=== PATIENT | male | born 1960 | race Caucasian/White ===

== ENCOUNTER 2019-05-26 12:21 | Inpatient (IN) | payer BC ==
--- NOTE | 2019-05-26 12:49 | ER Document Report ---
ED Medical Screen (RME) - General Chief Complaint: Headache Stated Complaint: HEADACHE,DIZZINESS,BLURRED VISION Time Seen by Provider: 05/26/19 12:46 Primary Care Provider: JUANA ANDUJAR FNP-C [Primary Care Provider] - Follow up as needed Mode of Arrival: Wheelchair Information source: Patient, Relative Notes: 58-year-old male presents to the emergency department with complaints of headache dizziness blurred vision. Reports symptoms started last night. Reports he is having trouble with balance. He did go to an urgent care and they sent him to the emergency department for possible stroke. No history of stroke. Patient is alert and oriented no obvious neuro deficits noted. I have greeted and performed a rapid initial assessment of this patient. A comprehensive ED assessment and evaluation of the patient, analysis of test results and completion of the medical decision making process will be conducted by additional ED providers. Doctor's Discharge - Discharge Referrals: JUANA ANDUJAR FNP-C [Primary Care Provider] - Follow up as needed
--- NOTE | 2019-05-26 13:11 | ER Document Report ---
Doctor's Note Notes: 05/26/19 13:10 I was notified by Dr. Villela at [address] findings. They were concerning for evolving infarction versus mass. I did notify charge nurse. Patient was in sub-waiting, is now being brought back for further evaluation. 05/26/19 13:44
--- NOTE | 2019-05-26 13:11 | RADIOLOGY REPORT (SQ) ---
EXAM DESCRIPTION: CT HEAD WITHOUT COMPLETED DATE/TIME: 05/26/2019 12:59 pm REASON FOR STUDY: headache blurred vision, off balance COMPARISON: None. TECHNIQUE: Axial images acquired through the brain without intravenous contrast. Images reviewed wi th bone, brain and subdural windows. Additional sagittal and coronal reconstructions were generated. Images stored on PACS. All CT scanners at this facility use dose modulation, iterative reconstruction, and/or weight based d osing when appropriate to reduce radiation dose to as low as reasonably achievable (ALARA). [facility]: Dose Right [facility]: CareDose [facility]: Dose Right [facility]: Teradose 4D [facility]: Rounds RADIATION DOSE: CT Rad equipment meets quality standard of care and radiation dose reduction techniq ues were employed. CTDIvol: 53.2 mGy. DLP: 1070 mGy-cm. mGy. LIMITATIONS: None. FINDINGS: VENTRICLES: Normal size and contour. CEREBRUM: Focal decreased attenuation in the right frontal lobe extending from the anterior horn of t he right lateral ventricle to the cortex. This could represent focal evolving infarct. Underlying m ass cannot be excluded. Correlation with MRI is recommended. No hemorrhage. Mild mass effect. CEREBELLUM: No masses. No hemorrhage. No alteration of density. No evidence for acute infarction. EXTRAAXIAL SPACES: No fluid collections. No masses. ORBITS AND GLOBE: No intra- or extraconal masses. Normal contour of globe without masses. CALVARIUM: No fracture. PARANASAL SINUSES: No fluid or mucosal thickening. SOFT TISSUES: No mass or hematoma. OTHER: No other significant finding. IMPRESSION: Focal area of edema in the right frontal lobe this measures 3.5 x 2.3 cm. Differential includes evolving infarct versus mass. Further evaluation with MRI is recommended. EVIDENCE OF ACUTE STROKE: YES. COMMENT: Pertinent findings on the imaging study reported as a CRITICAL RESULT to Dr. Stoner at13:0 5 on 05/26/2019. Category of Critical Result: Right frontal lobe lesion either acute infarct or mass. Quality ID # 436: Final reports with documentation of one or more dose reduction techniques (e.g., Au tomated exposure control, adjustment of the mA and/or kV according to patient size, use of iterative reconstruction technique) TECHNICAL DOCUMENTATION: JOB ID: [id number] 2010 [employer]- All Rights Reserved Reading location - IP/workstation name: [email or web address]
--- NOTE | 2019-05-26 13:12 | RADIOLOGY REPORT (SQ) ---
EXAM DESCRIPTION: CHEST SINGLE VIEW COMPLETED DATE/TIME: 05/26/2019 1:02 pm REASON FOR STUDY: headache blurred vision, off balance COMPARISON: None. EXAM PARAMETERS: NUMBER OF VIEWS: One view. TECHNIQUE: Single frontal radiographic view of the chest acquired. RADIATION DOSE: NA LIMITATIONS: None. FINDINGS: LUNGS AND PLEURA: No opacities, masses or pneumothorax. No pleural effusion. MEDIASTINUM AND HILAR STRUCTURES: No masses. Contour normal. HEART AND VASCULAR STRUCTURES: Heart normal in size. Normal vasculature. BONES: No acute findings. HARDWARE: None in the chest. OTHER: No other significant finding. IMPRESSION: NO ACUTE RADIOGRAPHIC FINDING IN THE CHEST. TECHNICAL DOCUMENTATION: JOB ID: [id number] 2010 [employer]- All Rights Reserved Reading location - IP/workstation name: [email or web address]
[2019-05-26 13:14] LABS: ABSOLUTE BASOPHILS # (AUTO) 0.1 10^3/uL (0.0-0.2); ABSOLUTE EOSINOPHILS # (AUTO) 0.2 10^3/uL (0.0-0.6); ABSOLUTE LYMPHOCYTES (AUTO) 0.8 10^3/uL (0.5-4.7); ABSOLUTE MONOCYTES (AUTO) 0.6 10^3/uL (0.1-1.4); ABSOLUTE NEUT (AUTO) 3.2 10^3/uL (1.7-8.2); BASOPHILS % (AUTO) 1.2 % (0-2); EOSINOPHILS % (AUTO) 3.3 % (0-6); HEMATOCRIT 47.4 % (37.9-51.0); HEMOGLOBIN 16.5 g/dL (13.5-17.0); MEAN CORPUSCULAR HEMOGLOBIN 33.8 pg (27.0-33.4); MEAN CORPUSCULAR HGB CONC 34.8 g/dL (32.0-36.0); MEAN CORPUSCULAR VOLUME 97 fl (80-97); MONOCYTES % (AUTO) 12.9 % (3-13); PLATELET COUNT 263 10^3/uL (150-450); RED BLOOD COUNT 4.88 10^6/uL (4.35-5.55); RED CELL DISTRIBUTION WIDTH 14.8 % (11.5-14.0); SEGMENTED NEUTROPHILS % (AUTO) 65.6 % (42-78); TOTAL CELLS COUNTED % (AUTO) 100 %; WHITE BLOOD COUNT 4.8 10^3/uL (4.0-10.5)
[2019-05-26 13:17] LABS: INTERNATIONAL RATION (INR) 0.92
[2019-05-26 13:18] LABS: PARTIAL THROMBOPLASTIN TIME 29.1 SEC (23.5-35.8)
[2019-05-26 13:23] LABS: PROTHROMBIN TIME 12.4 SEC (11.4-15.4)
[2019-05-26 13:37] LABS: ALBUMIN 4.4 g/dL (3.5-5.0); ALKALINE PHOSPHATASE 67 U/L (38-126); ANION GAP 8 (5-19); ASPARTATE AMINO TRANSFERASE 30 U/L (17-59); BILIRUBIN,DIRECT 0.2 mg/dL (0.0-0.4); BILIRUBIN,TOTAL 0.8 mg/dL (0.2-1.3); BLOOD UREA NITROGEN 12 mg/dL (7-20); CALCIUM 9.6 mg/dL (8.4-10.2); CARBON DIOXIDE 26 mmol/L (22-30); CHLORIDE 103 mmol/L (98-107); CREATINE KINASE 313 U/L (55-170); GLUCOSE 110 mg/dL (75-110); POTASSIUM 4.3 mmol/L (3.6-5.0); TOTAL PROTEIN 7.7 g/dL (6.3-8.2)
[2019-05-26 13:49] LABS: CREATINE KINASE MB 2.62 ng/mL (<4.55)
--- NOTE | 2019-05-26 13:50 | ER Document Report ---
ED General - General Chief Complaint: Headache Stated Complaint: HEADACHE,DIZZINESS,BLURRED VISION Time Seen by Provider: 05/26/19 12:46 Primary Care Provider: JUANA ANDUJAR FNP-C [Primary Care Provider] - Follow up as needed Mode of Arrival: Wheelchair - HPI Notes: Patient is a 58-year-old male who presents to the emergency department for evaluation of left-sided headache, visual changes, feeling off balance, and nausea. He states that he was sitting at his desk at approximately 00 30 hours today. He had a sudden onset of a very severe left-sided headache. He had a ssociated blurred vision and nausea. He felt very off balance. He is having enough difficulty walking that he crawled to bed. He was able to go to sleep. He states he woke this morning, his pain was improved somewhat, but he still has pain in his left head and in the left side of his neck. He states his visual changes have improved mildly. He has some nausea but has not had any emesis. He states his balance is improved somewhat as well. - Related Data Home Medications: Albuterol as needed Past Medical History - General Information source: Patient, Relative - Social History Smoking Status: Current Every Day Smoker Family History: CAD Pulmonary Medical History: Reports: Hx COPD Endocrine Medical History: Reports: Hx Diabetes Mellitus Type 2 - Was on metformin, then taken off of it Review of Systems - Review of Systems Constitutional: See HPI Neurological/Psychological: See HPI -: Yes All other systems reviewed and negative Physical Exam - Vital signs Vitals: Temp Pulse Resp BP Pulse Ox 97.9 F 89 22 H 154/99 H 94 05/26/19 12:47 05/26/19 12:47 05/26/19 12:47 05/26/19 12:47 05/26/19 12:47 - Notes Notes: Vital signs reviewed, please refer to chart. Head is normocephalic, atraumatic. Pupils equal round, reactive to light. Neck is supple without meningismus. Heart is regular rate and rhythm. Lungs are clear to auscultation bilaterally. Abdomen is soft, nontender, normoactive bowel sounds throughout. Extremities without cyanosis, clubbing. Posterior calves are nontender. Peripheral pulses are equal. Skin is warm and dry. Patient is awake, alert, oriented x3. Cranial nerves II - XII are grossly intact without focal neurological deficits. Strength is plus 5 out of 5 bilateral upper and lower extremities. Sensation is intact. Reflexes symmetrical. Intact jwrg-di-wxhy and rapid alternating mov ements. He did have some mild dysmetria on fhyarp-jvqz-qdzixg. Course - Re-evaluation Re-evalutation: 05/26/19 13:49 Patient presents emergency department for evaluation. He had onset of symptoms at 00 30 hours. He presented to the emergency department well outside of the TPA window. His CT scan was not conclusive for an acute ischemic infarction, it certainly could be a mass. This is another reason that the patient would not meet TPA criteria. At this point he has minimal deficits. I explained the CT findings to the patient and MRI was ordered. He is stable at this time, we will continue to monitor. 05/26/19 15:39 MRI revealed old infarction in the frontal lobe, new cerebellar infarct. Patient was given aspirin. He was given morphine and Zofran for his pain. His neurological exam remained stable. I am awaiting phone call from medicine regarding admission. 05/26/19 15:[address] Manzano, he will admit the patient for further care. - Vital Signs Vital signs: Temp Pulse Resp BP Pulse Ox 97.9 F 83 19 158/120 H 94 05/26/19 12:47 05/26/19 12:47 05/26/19 12:47 05/26/19 12:47 05/26/19 12:47 - Laboratory Result Diagrams: 05/26/19 13:00 05/26/19 13:00 Laboratory results interpreted by me: 05/26/19 05/26/19 05/26/19 13:00 13:00 13:08 MCH 33.8 H RDW 14.8 H POC Glucose 116 H Creatine Kinase 313 H - Diagnostic Test Radiology reviewed: Reports reviewed Radiology results interpreted by me: 05/26/19 15:45 Chest X-Ray 05/26/19 12:47 IMPRESSION: NO ACUTE RADIOGRAPHIC FINDING IN THE CHEST. Head CT 05/26/19 12:47 IMPRESSION: Focal area of edema in the right frontal lobe this measures 3.5 x 2.3 cm. Differential includes evolving infarct versus mass. Further evaluation with MRI is recommended. EVIDENCE OF ACUTE STROKE: YES. Head MRI 05/26/19 13:43 IMPRESSION: 1. The region of interest in the right frontal lobe looks like chronic old infarct. Superimposed on chronic small vessel disease. Mild atrophy. 2. Acute left azeem cerebellar infarct. EVIDENCE OF ACUTE STROKE: YES. LEFT VERTEBROBASILAR. - EKG Interpretation by Me Additional EKG results interpreted by me: 05/26/19 13:50 Sinus mechanism with a rate of 85 bpm. Normal axis intervals. No acute ST changes concerning for ischemia or infarction. No old studies immediately available for comparison. Discharge - Discharge Clinical Impression: Cerebellar CVA Condition: Stable Disposition: ADMITTED INPATIENT Admitting Provider: Jose Juan (Hospitalist) Unit Admitted: IMCU Referrals: JUANA ANDUJAR, EMERGENCY VEHICLE OPERATIONS INSTRUCTOR-C [Primary Care Provider] - Follow up as needed
[2019-05-26 13:54] LABS: TROPONIN I < 0.012 ng/mL
--- NOTE | 2019-05-26 15:01 | RADIOLOGY REPORT (SQ) ---
EXAM DESCRIPTION: MRI HEAD COMBO COMPLETED DATE/TIME: 05/26/2019 2:42 pm REASON FOR STUDY: eval for evolving CVA vs mass, frontal lobe COMPARISON: CT 05/26/2019. TECHNIQUE: Multiplanar imaging includes noncontrasted T1, T2, FLAIR, diffusion with ADC map and post gadolinium contrast T1 sequences. Images stored on PACS. CONTRAST TYPE AND DOSE: 20 mL Dotarem. RENAL FUNCTION: Not indicated. ACR Type II contrast agent associated with few, if any, unconfounded cases of NSF LIMITATIONS: None. FINDINGS: ANATOMY: No anomalies. Normal vascular flow voids. Pituitary fossa normal. CSF SPACES: Normal in size and contour. No hemorrhage. CEREBRUM: Corresponding to the recently detected abnormal signal in the right frontal lobe is encepha lomalacia with surrounding hyperintense FLAIR presumed gliosis. There is mild additional deep white matter small vessel change present. There is no enhancement in the right frontal lobe or elsewhere. No hemorrhage or underlying mass or shift. POSTERIOR FOSSA: No signal alteration. No hemorrhage. No edema, masses, or mass effect. Internal barbara tory canals, cerebellopontine angles, mastoids normal. No enhancing lesions. No abnormal enhancement post contrast. DIFFUSION IMAGING: Spotty restricted diffusion in the left aspect of the cerebellum. This is consist ent with recent cerebellar infarct. ORBITS: No masses. Globes normal. PARANASAL SINUSES: No fluid. Chronic mucosal thickening in the maxillary sinuses. OTHER: No other significant finding. IMPRESSION: 1. The region of interest in the right frontal lobe looks like chronic old infarct. Superimposed on chronic small vessel disease. Mild atrophy. 2. Acute left azeem cerebellar infarct. EVIDENCE OF ACUTE STROKE: YES. LEFT VERTEBROBASILAR. TECHNICAL DOCUMENTATION: JOB ID: [id number] [employer]- All Rights Reserved Reading location - IP/workstation name: [email or web address]
[2019-05-26] MEDS ORDERED: MORPHINE SULFATE 10 MG/ML INJ IV ONE (15:10)
[2019-05-26] MEDS ORDERED: ONDANSETRON HCL INJ/PF 4 MG/2 ML SDV IV ONE (15:10)
[2019-05-26] MEDS ORDERED: ASPIRIN 325 MG TABLET PO ONE (15:10)
[2019-05-26] MEDS ORDERED: APIXABAN 5 MG TABLET PO ONE (15:11)
[2019-05-26] MEDS ORDERED: MAGNESIUM HYDROXIDE SUSP 30 ML UDCUP PO PRN (17:27)
[2019-05-26] MEDS ORDERED: DOCUSATE SODIUM 100 MG CAPSULE PO PRN (17:27)
[2019-05-26] MEDS ORDERED: ONDANSETRON HCL INJ/PF 4 MG/2 ML SDV IV PRN (17:27)
[2019-05-26] MEDS ORDERED: LABETALOL HCL INJ 20 MG/4 ML DISP.SYRIN IV PRN (17:31)
--- NOTE | 2019-05-26 17:31 | EKG REPORT ---
SEVERITY:- BORDERLINE ECG - SINUS RHYTHM CONSIDER INFERIOR INFARCT : Confirmed by: Shira Seymour 26-May-2019 17:30:41
[2019-05-26] MEDS ORDERED: IPRATROPIUM/ALBUTEROL 0.5-2.5 MG/3 ML AMPUL NEB PRN (17:32)
--- NOTE | 2019-05-26 17:50 | PDOC H&P ---
History of Present Illness Admission Date/PCP: 05/26/19 16:04 JUANA ANDUJAR, MELE-C Patient complains of: Headache, dizziness, blurred vision History of Present Illness: BRYAN MATOS is a 58 year old male with a history of COPD not on home oxygen, hypertension, chronic tobacco abuse, obesity, who presents to the hospital complaining of sudden onset dizziness worsening vision started at 12:30 AM around midnight. Patient noted some imbalance and subsequently went to sleep hoping to sleep it off. When he woke up this morning he was still having imbalance and disequilibrium as well as mild blurred vision when he moved around and decided to see his primary care provider who referred him to the hospital for evaluation. In the ER patient was noted to have a stroke. Unfortunately was out of the TPA window so could not receive TPA. Currently still states disequilibrium but notes some improvement in the symptoms. Denies any weakness in his arms legs. Still admits to some blurriness in his vision whenever he moves around but is good when he is steady. Otherwise no other neurological deficits. Denies any shortness of breath at this time more than his baseline. Denies any history of atrial fibrillation or prior strokes. Past Medical History Cardiac Medical History: Reports: Hypertension Denies: Atrial Fibrillation, Congestive Heart Failure, Myocardial Infarction, Hyperlipidema Pulmonary Medical History: Reports: Bronchitis, Chronic Obstructive Pulmonary Disease (COPD) Denies: Asthma, Pneumonia, Tuberculosis Neurological Medical History: Reports: Migraine Denies: Seizures Endocrine Medical History: Reports: Other - Prediabetes Denies: Diabetes Mellitus Type 1 Renal/ Medical History: Denies: End Stage Renal Disease GI Medical History: Denies: Gastroesophageal Reflux Disease, Hiatal Hernia Musculoskeltal Medical History: Denies: Arthritis Psychiatric Medical History: Denies: Attention Deficit Hyperactivity Disorder, Bipolar Disorder, Depression Hematology: Denies: Anemia, Sickle Cell Disease Past Surgical History Past Surgical History: Reports: Orthopedic Surgery - Right wrist repair in approx year 1979, Tonsillectomy Denies: Appendectomy, Cardiac Catheterization, Cholecystectomy, Vascular Surgery Social History Smoking Status: Current Every Day Smoker Electronic Cigarette use?: No Frequency of Alcohol Use: Rare Hx Recreational Drug Use: No - Advance Directive Resuscitation Status: Full Code Family History Family History: CAD, DM Parental Family History Reviewed: Yes Children Family History Reviewed: NA Sibling(s) Family History Reviewed.: NA Medication/Allergy Home Medications: Albuterol Sulfate [Proair Hfa Inhalation Aerosol 8.5 gm Mdi] 200 puff IH BIDP PRN 05/26/19 Aspirin/Acetaminophen/Caffeine [Excedrin Extra Strength Caplet] 1 each PO DAILYP PRN 05/26/19 Fluticasone/Salmeterol [Advair 250-50 Diskus 14 Dose/Diskus] 1 inh IH Q12H 05/26/19 Ibuprofen [Motrin 800 mg Tablet] 800 mg PO Q8H PRN 05/26/19 Allergies/Adverse Reactions: No Known Allergies Allergy (Verified 05/26/19 16:57) Review of Systems Constitutional: PRESENT: headache(s). ABSENT: chills, fever(s) Eyes: PRESENT: visual disturbances Ears: ABSENT: hearing changes Nose, Mouth, and Throat: PRESENT: headache(s) Cardiovascular: ABSENT: chest pain Respiratory: ABSENT: cough, dyspnea Gastrointestinal: PRESENT: abdominal pain, nausea. ABSENT: melena, vomiting Genitourinary: ABSENT: dysuria Integumentary: ABSENT: diaphoresis Neurological: PRESENT: dizziness. ABSENT: confusion, syncope, vertigo Psychiatric: ABSENT: anxiety Endocrine: ABSENT: heat intolerance, polyuria Allergic/Immunologic: ABSENT: seasonal rhinorrhea Physical Exam Vital Signs: Temp Pulse Resp BP Pulse Ox 97.9 F 88 17 159/100 H 87 L 05/26/19 12:47 05/26/19 15:00 05/26/19 16:00 05/26/19 16:00 05/26/19 16:00 Intake & Output 05/25/19 05/26/19 05/27/19 06:59 06:59 06:59 Weight 115 kg General appearance: PRESENT: no acute distress, cooperative, obese. ABSENT: hard of hearing Head exam: PRESENT: normocephalic Eye exam: PRESENT: EOMI, PERRLA. ABSENT: nystagmus, scleral icterus Mouth exam: PRESENT: neck supple Neck exam: ABSENT: JVD Respiratory exam: PRESENT: symmetrical, unlabored, wheezes. ABSENT: crackles, rhonchi, tachypnea Cardiovascular exam: PRESENT: RRR, +S1, +S2. ABSENT: tachycardia GI/Abdominal exam: PRESENT: soft. ABSENT: rebound, rigid, tenderness Extremities exam: PRESENT: +1 edema Neurological exam: PRESENT: alert, awake, oriented to person, oriented to place, oriented to time, oriented to situation, abnormal gait, CN II-XII grossly intact. ABSENT: ataxia, motor sensory deficit, aphasic Psychiatric exam: ABSENT: agitated, anxious Focused psych exam: ABSENT: pressured speech Skin exam: ABSENT: jaundice Results Laboratory Results: 05/26/19 13:00 05/26/19 13:00 05/26/19 05/26/19 13:00 13:00 WBC 4.8 RBC 4.88 Hgb 16.5 Hct 47.4 MCV 97 MCH 33.8 H MCHC 34.8 RDW 14.8 H Plt Count 263 Seg Neutrophils % 65.6 Sodium 137.0 Potassium 4.3 Chloride 103 Carbon Dioxide 26 Anion Gap 8 BUN 12 Creatinine 0.91 Est GFR ( Amer) > 60 Glucose 110 Calcium 9.6 Total Bilirubin 0.8 AST 30 Alkaline Phosphatase 67 Total Protein 7.7 Albumin 4.4 05/26/19 05/26/19 13:00 13:00 Creatine Kinase 313 H CK-MB (CK-2) 2.62 Troponin I < 0.012 Impressions: Chest X-Ray 05/26/19 12:47 IMPRESSION: NO ACUTE RADIOGRAPHIC FINDING IN THE CHEST. Head CT 05/26/19 12:47 IMPRESSION: Focal area of edema in the right frontal lobe this measures 3.5 x 2.3 cm. Differential includes evolving infarct versus mass. Further evaluation with MRI is recommended. EVIDENCE OF ACUTE STROKE: YES. Head MRI 05/26/19 13:43 IMPRESSION: 1. The region of interest in the right frontal lobe looks like chronic old infarct. Superimposed on chronic small vessel disease. Mild atrophy. 2. Acute left azeem cerebellar infarct. EVIDENCE OF ACUTE STROKE: YES. LEFT VERTEBROBASILAR. Assessment and Plan - Diagnosis (1) Acute ischemic stroke Is this a current diagnosis for this admission?: Yes Plan: Acute ischemic stroke involving left cerebellum noted on MRI as well as old stroke in the right frontal. Unfortunately patient was out of the TPA window and as such could not receive TPA CVA care set deployed Check CTA head and neck, echocardiogram, hemoglobin A1c, lipid panel. Permissive hypertension and bedrest for 24 hours PT to help with balance training/OT/social work (2) COPD (chronic obstructive pulmonary disease) Qualifiers: COPD type: unspecified COPD Qualified Code(s): J44.9 - Chronic obstructive pulmonary disease, unspecified Is this a current diagnosis for this admission?: Yes Plan: May be having mild exacerbation with wheezing. Will put on nebulizer dqujlp-yxb-ydsks as well as LABA/ICS. No steroids for now. (3) Obesity Qualifiers: Obesity type: unspecified obesity type Obesity classification: adult class 2 (BMI 35 - 39.9) Serious obesity comorbidity presence: unspecified whether serious comorbidity present Body mass index: BMI 36.0-36.9 Qualified Code(s): E66.9 - Obesity, unspecified; Z68.36 - Body mass index (BMI) 36.0-36.9, adult Is this a current diagnosis for this admission?: Yes Plan: Check hemoglobin A1c and lipid panel (4) Tobacco abuse Is this a current diagnosis for this admission?: Yes Plan: Counseled on smoking cessation. (5) Hypertension Qualifiers: Hypertension type: essential hypertension Qualified Code(s): I10 - Essential (primary) hypertension Is this a current diagnosis for this admission?: Yes Plan: Permissive hypertension for 24hrs up to 220/120 - Time Time Spent with patient: 35 or more minutes
[2019-05-26] MEDS ORDERED: INFLUENZA QUAD (6MOS+) 2019-20 VAC 0.5 ML SYR IM ONE (17:54)
[2019-05-26] MEDS ORDERED: CLOPIDOGREL BISULFATE 75 MG TABLET PO ONE (18:00)
[2019-05-26] MEDS ORDERED: FLUTICASONE/VILANTEROL 100-25 MCG/DOSE IH ONE (18:30)
[2019-05-26] MEDS: HYDROCODONE/ACETAMINOPHEN 10-325 MG TABLET PO PRN (18:45)
[2019-05-26] MEDS: IPRATROPIUM/ALBUTEROL 0.5-2.5 MG/3 ML AMPUL NEB SCH (20:34)
[2019-05-26] MEDS ORDERED: ATORVASTATIN CALCIUM 80 MG TABLET PO SCH (22:00)
[2019-05-27] MEDS ORDERED: ACETAMINOPHEN 325 MG TABLET PO PRN (00:44)
[2019-05-27] MEDS: IPRATROPIUM/ALBUTEROL 0.5-2.5 MG/3 ML AMPUL NEB SCH ×3 (02:09→13:44)
[2019-05-27 06:35] LABS: PROTHROMBIN TIME 13.2 SEC (11.4-15.4)
[2019-05-27 06:36] LABS: PARTIAL THROMBOPLASTIN TIME 30.3 SEC (23.5-35.8)
[2019-05-27 06:45] LABS: ALBUMIN 3.7 g/dL (3.5-5.0); ALKALINE PHOSPHATASE 50 U/L (38-126); ANION GAP 7 (5-19); ASPARTATE AMINO TRANSFERASE 26 U/L (17-59); BILIRUBIN,DIRECT 0.2 mg/dL (0.0-0.4); BILIRUBIN,TOTAL 0.8 mg/dL (0.2-1.3); BLOOD UREA NITROGEN 11 mg/dL (7-20); CALCIUM 8.9 mg/dL (8.4-10.2); CARBON DIOXIDE 27 mmol/L (22-30); CHLORIDE 103 mmol/L (98-107); CHOLESTEROL 195.14 mg/dL (0-200); GLUCOSE 101 mg/dL (75-110); POTASSIUM 4.3 mmol/L (3.6-5.0); TOTAL PROTEIN 6.7 g/dL (6.3-8.2); TRIGLYCERIDES 167 mg/dL (<150)
[2019-05-27 06:56] LABS: DIRECT LDL 143 mg/dL (<100)
[2019-05-27 07:00] LABS: VLDL CHOLESTEROL 33.4 mg/dL (10-31)
[2019-05-27 07:35] LABS: ABSOLUTE EOSINOPHILS # (AUTO) 0.2 10^3/uL (0.0-0.6); ABSOLUTE LYMPHOCYTES (AUTO) 0.7 10^3/uL (0.5-4.7); ABSOLUTE MONOCYTES (AUTO) 0.6 10^3/uL (0.1-1.4); ABSOLUTE NEUT (AUTO) 3.2 10^3/uL (1.7-8.2); BASOPHILS % (AUTO) 0.8 % (0-2); EOSINOPHILS % (AUTO) 3.5 % (0-6); HEMATOCRIT 42.4 % (37.9-51.0); HEMOGLOBIN 14.6 g/dL (13.5-17.0); LYMPHOCYTES % (AUTO) 14.1 % (13-45); MEAN CORPUSCULAR HEMOGLOBIN 33.5 pg (27.0-33.4); MEAN CORPUSCULAR HGB CONC 34.3 g/dL (32.0-36.0); MEAN CORPUSCULAR VOLUME 98 fl (80-97); MONOCYTES % (AUTO) 12.5 % (3-13); PLATELET COUNT 222 10^3/uL (150-450); RED BLOOD COUNT 4.35 10^6/uL (4.35-5.55); SEGMENTED NEUTROPHILS % (AUTO) 69.1 % (42-78); TOTAL CELLS COUNTED % (AUTO) 100 %; WHITE BLOOD COUNT 4.7 10^3/uL (4.0-10.5)
[2019-05-27] MEDS: HYDROCODONE/ACETAMINOPHEN 10-325 MG TABLET PO PRN (08:25)
[2019-05-27] MEDS ORDERED: CLOPIDOGREL BISULFATE 75 MG TABLET PO SCH (10:00)
[2019-05-27] MEDS ORDERED: ASPIRIN 81 MG TABLET, CHEWABLE PO SCH (10:00)
[2019-05-27] MEDS ORDERED: FLUTICASONE/VILANTEROL 100-25 MCG/DOSE IH SCH (10:00)
[2019-05-27] MEDS ORDERED: CYCLOBENZAPRINE HCL 10 MG TABLET PO PRN (10:20)
--- NOTE | 2019-05-27 10:30 | RADIOLOGY REPORT (SQ) ---
EXAM DESCRIPTION: CTA HEAD COMPLETED DATE/TIME: 05/27/2019 7:57 am REASON FOR STUDY: CVA COMPARISON: None. TECHNIQUE: Axial images acquired through the brain with intravenous contrast. Images reviewed with bone, brain and subdural windows. Additional sagittal and coronal reconstructions were generated. Im ages stored on PACS. CT angio [place] was performed. Thin section postcontrast CT images were reviewed with maxim um intensity projected images of the [place] in multiple orientations. All CT scanners at this facility use dose modulation, iterative reconstruction, and/or weight based d osing when appropriate to reduce radiation dose to as low as reasonably achievable (ALARA). [facility]: Dose Right [facility]: CareDose [facility]: Dose Right [facility]: Teradose 4D [facility]: Induction Manager CONTRAST TYPE AND DOSE: See separate report of the same date. RENAL FUNCTION: See separate report. RADIATION DOSE: . LIMITATIONS: None. FINDINGS: VENTRICLES: Normal size and contour. CEREBRUM: No masses. No hemorrhage. No midline shift. No evidence for acute infarction. Old right frontal infarct. CEREBELLUM: No masses. No hemorrhage. No alteration of density. No evidence for acute infarction. No enhancing lesions. EXTRA-AXIAL SPACES: No fluid collections. No enhancing lesions. ORBITS AND GLOBE: No intra- or extraconal masses. Normal contour of globe without masses. CALVARIUM: No fracture. PARANASAL SINUSES: No fluid or mucosal thickening. SOFT TISSUES: No mass or hematoma. OTHER: No other significant finding. CTA COW: [place]: The anterior, middle, posterior cerebral arteries are all patent. No evidence of a neurysm or focal stenosis. POSTERIOR CIRCULATION: The distal vertebral arteries are patent as is the basilar artery. No aneurysm . OTHER: No other significant finding. IMPRESSION: Old right frontal lobe infarct. Normal [place]. EVIDENCE OF ACUTE STROKE: NO. TECHNICAL DOCUMENTATION: JOB ID: [id number] Quality ID # 436: Final reports with documentation of one or more dose reduction techniques (e.g., Au tomated exposure control, adjustment of the mA and/or kV according to patient size, use of iterative reconstruction technique) 2010 [employer]- All Rights Reserved Reading location - IP/workstation name: [email or web address]
--- NOTE | 2019-05-27 10:32 | RADIOLOGY REPORT (SQ) ---
EXAM DESCRIPTION: CTA NECK COMPLETED DATE/TIME: 05/27/2019 7:57 am REASON FOR STUDY: CVA COMPARISON: None. TECHNIQUE: Axial dynamic scanning technique with dynamic contrast enhancement through the extra-window and siding craftsman nial carotid and vertebral arteries. Multiplanar reconstruction. 3-D MIPS and Volume-rendered imag es acquired at the workstation and saved to PACS. Images are reviewed in soft tissue, bone, lung w indows. All CT scanners at this facility use dose modulation, iterative reconstruction, and/or weight based d osing when appropriate to reduce radiation dose to as low as reasonably achievable (ALARA). [facility]: Dose Right [facility]: CareDose [facility]: Dose Right [facility]: Teradose 4D [facility]: [place] CONTRAST TYPE AND DOSE: contrast/concentration: Isovue 350.00 mg/ml; Total Contrast Delivered: 160.0 ml; Total Saline Delivered: 110.0 ml RENAL FUNCTION: GFR > 60. LIMITATIONS: None. FINDINGS: AORTIC ARCH: Normal three-vessel origin. Bilateral subclavian arteries are patent. No d issection. RIGHT CAROTIDS: Patent common, internal and external carotid arteries without suggestion of significa nt stenosis or irregular plaque. No dissection. RIGHT VERTEBRAL: Patent. No dissection. LEFT CAROTIDS: Patent common, internal and external carotid arteries without suggestion of significan t stenosis or irregular plaque. No dissection. LEFT VERTEBRAL: Patent. No dissection. OTHER: No other significant finding. OTHER: 3-D reconstructions confirm findings. IMPRESSION: NORMAL CTA OF THE EXTRA-CRANIAL CAROTID AND VERTEBRAL ARTERIES. COMMENT: Quality ID #195: Measurements of distal internal carotid diameter were used as the denomina tor for stenosis measurement. TECHNICAL DOCUMENTATION: JOB ID: [id number] Quality ID # 436: Final reports with documentation of one or more dose reduction techniques (e.g., Au tomated exposure control, adjustment of the mA and/or kV according to patient size, use of iterative reconstruction technique) 2010 [employer]- All Rights Reserved Reading location - IP/workstation name: [email or web address]
[2019-05-27] MEDS ORDERED: LOSARTAN POTASSIUM 25 MG TABLET PO SCH (14:45)
[2019-05-27] MEDS ORDERED: NICOTINE 21 MG/24 HR PATCH.TD24 TD PRN (15:43)
[2019-05-27] MEDS ORDERED: BUPROPION HCL 75 MG TABLET PO SCH (15:45)
--- NOTE | 2019-05-27 15:53 | XCELERA REPORT ---
[address] [address] Transthoracic Echocardiogram Report Name: BRYAN MATOS Age: 58 yrs Gender: Male : 1960 Patient Status: Inpatient Patient Location: [address] [place], [place] [id number] Study Date: 05/27/2019 09:03 AM Height: 70 in Weight: 253 lb BSA: 2.3 m2 Procedure: A complete two-dimensional transthoracic echocardiogram was performed (2D, M-mode, spectral and color flow Doppler). The study was technically adequate with some images being suboptimal in quality. Reason For Study: CVA Ordering Physician: EVAN ALVA Performed By: Ele Parekh Interpretation Summary The left ventricular ejection fraction is normal. There is mild concentric left ventricular hypertrophy. Doppler measurements suggest pseudonormalized left ventricular relaxation, which is associated with grade II/IV or mild to moderate diastolic dysfunction The left ventricle is grossly normal size. Wall motion cannot be accurately commented on, but no definite regional wall motion abnormalities noted. Borderline right ventricular enlargement. The right ventricular systolic function is normal. The left atrium is mildly dilated. The right atrium is normal. There is a trace amount of mitral regurgitation There is no mitral valve stenosis. No aortic regurgitation is present. There is no aortic valve stenosis There is a trace or physiologic amount of tricuspid regurgitation Tricuspid regurgitation jet envelope not well defined to measure RV systolic pressure accurately. The aortic root is not well visualized but is probably normal size. The inferior vena cava appeared normal and decreased > 50% with respiration (RAP 5-10 mmHg) Minimal pericardial effusion. No definite cardiac source of CVA/TIA noted on this particular trans-thoracic study. Consider JONNY if clinically indicated. MMode/2D Measurements & Calculations RVDd: 2.3 cm LVIDd: 5.7 cm FS: 32.0 % Ao root diam: 2.7 cm IVSd: 1.1 cm LVIDs: 3.8 cm EDV(Teich): 156.9 ml Ao root area: 5.8 cm2 LVPWd: 0.96 cm ESV(Teich): 63.7 ml EF(Teich): 59.4 % Doppler Measurements & Calculations MV E max buster: MV dec slope: Ao V2 max: LV V1 max P.9 cm/sec 304.6 cm/sec2 192.0 cm/sec 6.3 mmHg MV A max buster: MV dec time: 0.21 sec Ao max PG: LV V1 max: 79.9 cm/sec 14.7 mmHg 125.7 cm/sec MV E/A: 0.80 PA V2 max: TR max buster: 83.0 cm/sec 143.3 cm/sec PA max P.8 mmHgTR max P.2 mmHg Left Ventricle The left ventricle is grossly normal size. There is mild concentric left ventricular hypertrophy. The left ventricular ejection fraction is normal. Doppler measurements suggest pseudonormalized left ventricular relaxation, which is associated with grade II/IV or mild to moderate diastolic dysfunction. Wall motion cannot be accurately commented on, but no definite regional wall motion abnormalities noted. Right Ventricle Borderline right ventricular enlargement. There is normal right ventricular wall thickness. The right ventricular systolic function is normal. Atria The right atrium is normal. The left atrium is mildly dilated. Interarterial septum not well visualized and not well dopplered. Cannot comment on ASD/PFO presence. Mitral Valve The mitral valve is grossly normal. There is no mitral valve stenosis. There is a trace amount of mitral regurgitation. Aortic Valve The aortic valve is grossly normal. There is no aortic valve stenosis. No aortic regurgitation is present. Tricuspid Valve The tricuspid valve is not well visualized, but is grossly normal. There is no tricuspid stenosis. There is a trace or physiologic amount of tricuspid regurgitation. Tricuspid regurgitation jet envelope not well defined to measure RV systolic pressure accurately. Pulmonic Valve The pulmonic valve is not well visualized. Great Vessels The aortic root is not well visualized but is probably normal size. The inferior vena cava appeared normal and decreased > 50% with respiration (RAP 5-10 mmHg). Effusions Minimal pericardial effusion. Incidental Findings No definite cardiac source of CVA/TIA noted on this particular trans-thoracic study. Consider JONNY if clinically indicated. : EVAN ALVA Shyamal
[2019-05-27] MEDS ORDERED: CHLORTHALIDONE 25 MG TABLET PO SCH (16:00)
--- NOTE | 2019-05-27 16:21 | PDOC DISCHARGE SUMMARY ---
Impression - Admit/DC Date/PCP Admission Date/Primary Care Provider: 05/26/19 16:04 KATE RICKETTS Discharge Date: 05/27/19 - Discharge Diagnosis (1) Acute ischemic stroke Is this a current diagnosis for this admission?: Yes (2) COPD (chronic obstructive pulmonary disease) Is this a current diagnosis for this admission?: Yes (3) Obesity Is this a current diagnosis for this admission?: Yes (4) Tobacco abuse Is this a current diagnosis for this admission?: Yes (5) Hypertension Is this a current diagnosis for this admission?: Yes - Additional Information Resuscitation Status: Full Code Discharge Diet: Regular, Other (Comments) - low cholesterol Discharge Activity: Activity As Tolerated Referrals: PAMELA SEYMOUR MD [ACTIVE STAFF] - JUANA ANDUJAR FNP-C [Primary Care Provider] - 06/04/19 11:40 am Prescriptions: Aspirin [Aspirin 81 mg Chewable Tablet] 81 mg PO DAILY #30 tab.chew Losartan Potassium [Cozaar 25 mg Tablet] 25 mg PO DAILY #30 tablet Cyclobenzaprine HCl [Flexeril 10 mg Tablet] 5 mg PO TIDP PRN #30 tablet PRN Reason: Muscle Spasms Chlorthalidone [Hygroton 25 mg Tablet] 25 mg PO DAILY #30 tablet Atorvastatin Calcium [Lipitor 80 mg Tablet] 80 mg PO QHS #30 tablet Nicotine [Nicoderm 21 mg/24 Hr Transderm Patch] 1 each TD DAILYP PRN #15 patch.td24 PRN Reason: Clopidogrel Bisulfate [Plavix 75 mg Tablet] 75 mg PO DAILY 21 Days #21 tablet Bupropion HCl [Wellbutrin 75 mg Tablet] 150 mg PO DAILY #120 tablet Home Medications: Albuterol Sulfate [Proair HFA Inhalation Aerosol 8.5 gm MDI] 200 puff IH BIDP PRN 05/26/19 Fluticasone/Salmeterol [Advair 250-50 Diskus 14 Dose/Diskus] 1 inh IH Q12H 05/26/19 Ibuprofen [Motrin 800 mg Tablet] 800 mg PO Q8H PRN 05/26/19 Aspirin [Aspirin 81 mg Chewable Tablet] 81 mg PO DAILY #30 tab.chew 05/27/19 Atorvastatin Calcium [Lipitor 80 mg Tablet] 80 mg PO QHS #30 tablet 05/27/19 Bupropion HCl [Wellbutrin 75 mg Tablet] 150 mg PO DAILY #120 tablet 05/27/19 Chlorthalidone [Hygroton 25 mg Tablet] 25 mg PO DAILY #30 tablet 05/27/19 Clopidogrel Bisulfate [Plavix 75 mg Tablet] 75 mg PO DAILY 21 Days #21 tablet 05/27/19 Cyclobenzaprine HCl [Flexeril 10 mg Tablet] 5 mg PO TIDP PRN #30 tablet 05/27/19 Losartan Potassium [Cozaar 25 mg Tablet] 25 mg PO DAILY #30 tablet 05/27/19 Nicotine [Nicoderm 21 mg/24 Hr Transderm Patch] 1 each TD DAILYP PRN #15 patch.td24 05/27/19 History of Present Illiness History of Present Illness: BRYAN MATOS is a 58 year old male with a history of COPD not on home oxygen, hypertension, chronic tobacco abuse, obesity, who presents to the hospital complaining of sudden onset dizziness worsening vision started at 12:30 AM around midnight. Patient noted some imbalance and subsequently went to sleep hoping to sleep it off. When he woke up this morning he was still having imbalance and disequilibrium as well as mild blurred vision when he moved around and decided to see his primary care provider who referred him to the hospital for evaluation. In the ER patient was noted to have a stroke. Unfortunately was out of the TPA window so could not receive TPA. Currently still states disequilibrium but notes some improvement in the symptoms. Denies any weakness in his arms legs. Still admits to some blurriness in his vision whenever he moves around but is good when he is steady. Otherwise no other neurological deficits. Denies any shortness of breath at this time more than his baseline. Denies any history of atrial fibrillation or prior strokes. Hospital Course Hospital Course: You were admitted to the hospital for evaluation of dizziness. You were found to have an acute stroke involving the left cerebellum as well as an old stroke in your right frontal lobe on MRI. His symptoms have improved. Work-up for stroke included CTA scan of your blood vessels in your head and your neck which were all patent without obstruction. Cardiac monitoring in the hospital showed no evidence of atrial fibrillation or arrhythmias. Transthoracic echocardiogram showed no blood clots in the heart. There is evidence of longstanding hypertension on your echocardiogram of your heart. Longstanding hypertension as well as elevated cholesterol level with LDL of 143 your lipid panel puts you at high risk of getting a stroke. Hemoglobin A1c was normal indicating that you do not have prediabetes nor diabetes. Have started you on losartan and chlorthalidone for a hypertension. Atorvastatin for high cholesterol. Baby aspirin 81 mg daily lifelong and Plavix 75 mg daily for only 21 days to help prevent future strokes. You will be following up in the office with Dr. Seymour [family day care provider] for placement of a traffic monitor specialist to monitor your heart for any occult arrhythmias such as atrial fibrillation which was not picked up while you are in the hospital, as this could increase your chances of getting stroke as well. I have also started you on smoking cessation therapy. You can use the nicotine patch as needed and you are to take the bupropion 150 mg daily for the next 3 days then 150 mg twice a day to help you with smoking cessation. Also treated for mild COPD exacerbation with nebulizers. No steroids were needed as patient's respiratory status was very much close to baseline. Cleared for discharge by PT and he did very well during the therapy not requiring anything more than minimal assistance. Patient being discharged stable conditions at this time. Physical Exam Vital Signs: Temp Pulse Resp BP Pulse Ox 98.1 F 86 16 168/92 H 95 05/27/19 11:26 05/27/19 13:44 05/27/19 13:44 05/27/19 12:00 05/27/19 13:44 Intake & Output 05/26/19 05/27/19 05/28/19 06:59 06:59 06:59 Intake Total 680 600 Balance 680 600 Weight 113.3 kg General appearance: PRESENT: no acute distress, cooperative Respiratory exam: PRESENT: wheezes - mild Neurological exam: PRESENT: alert, awake, oriented to person, oriented to place, CN II-XII grossly intact, motor sensory deficit. ABSENT: ataxia, aphasic Psychiatric exam: ABSENT: agitated, anxious Results Laboratory Results: WBC 4.7 10^3/uL (4.0-10.5) 05/27/19 07:15 RBC 4.35 10^6/uL (4.35-5.55) 05/27/19 07:15 Hgb 14.6 g/dL (13.5-17.0) 05/27/19 07:15 Hct 42.4 % (37.9-51.0) 05/27/19 07:15 MCV 98 fl (80-97) H 05/27/19 07:15 MCH 33.5 pg (27.0-33.4) H 05/27/19 07:15 MCHC 34.3 g/dL (32.0-36.0) 05/27/19 07:15 RDW 15.0 % (11.5-14.0) H 05/27/19 07:15 Plt Count 222 10^3/uL (150-450) 05/27/19 07:15 Lymph % (Auto) 14.1 % (13-45) 05/27/19 07:15 Scurry % (Auto) 12.5 % (3-13) 05/27/19 07:15 Eos % (Auto) 3.5 % (0-6) 05/27/19 07:15 Baso % (Auto) 0.8 % (0-2) 05/27/19 07:15 Absolute Neuts (auto) 3.2 10^3/uL (1.7-8.2) 05/27/19 07:15 Absolute Lymphs (auto) 0.7 10^3/uL (0.5-4.7) 05/27/19 07:15 Absolute Monos (auto) 0.6 10^3/uL (0.1-1.4) 05/27/19 07:15 Absolute Eos (auto) 0.2 10^3/uL (0.0-0.6) 05/27/19 07:15 Absolute Basos (auto) 0.0 10^3/uL (0.0-0.2) 05/27/19 07:15 Seg Neutrophils % 69.1 % (42-78) 05/27/19 07:15 Platelet Estimate Cancelled 05/27/19 05:20 PT 13.2 SEC (11.4-15.4) 05/27/19 05:20 INR 1.00 05/27/19 05:20 APTT 30.3 SEC (23.5-35.8) 05/27/19 05:20 Sodium 137.0 mmol/L (137-145) 05/27/19 05:20 Potassium 4.3 mmol/L (3.6-5.0) 05/27/19 05:20 Chloride 103 mmol/L (98-107) 05/27/19 05:20 Carbon Dioxide 27 mmol/L (22-30) 05/27/19 05:20 Anion Gap 7 (5-19) 05/27/19 05:20 BUN 11 mg/dL (7-20) 05/27/19 05:20 Creatinine 0.92 mg/dL (0.52-1.25) 05/27/19 05:20 Est GFR ( Amer) > 60 (>60) 05/27/19 05:20 Est GFR (MDRD) Non-Af > 60 (>60) 05/27/19 05:20 Glucose 101 mg/dL (75-110) 05/27/19 05:20 POC Glucose 130 mg/dL (70-110) H 05/27/19 11:17 Hemoglobin A1c % 5.8 % (4.7-6.0) 05/27/19 05:20 Calcium 8.9 mg/dL (8.4-10.2) 05/27/19 05:20 Total Bilirubin 0.8 mg/dL (0.2-1.3) 05/27/19 05:20 Direct Bilirubin 0.2 mg/dL (0.0-0.4) 05/27/19 05:20 Neonat Total Bilirubin Not Reportable 05/27/19 05:20 Neonat Direct Bilirubin Not Reportable 05/27/19 05:20 Neonat Indirect Bili Not Reportable 05/27/19 05:20 AST 26 U/L (17-59) 05/27/19 05:20 ALT 27 U/L (<50) 05/27/19 05:20 Alkaline Phosphatase 50 U/L (38-126) 05/27/19 05:20 Creatine Kinase 313 U/L (55-170) H 05/26/19 13:00 CK-MB (CK-2) 2.62 ng/mL (<4.55) 05/26/19 13:00 Troponin I < 0.012 ng/mL 05/26/19 13:00 Total Protein 6.7 g/dL (6.3-8.2) 05/27/19 05:20 Albumin 3.7 g/dL (3.5-5.0) 05/27/19 05:20 Triglycerides 167 mg/dL (<150) H 05/27/19 05:20 Cholesterol 195.14 mg/dL (0-200) 05/27/19 05:20 LDL Cholesterol Direct 143 mg/dL (<100) H 05/27/19 05:20 VLDL Cholesterol 33.4 mg/dL (10-31) H 05/27/19 05:20 HDL Cholesterol 43 mg/dL (>40) 05/27/19 05:20 Slides for Path Review Cancelled 05/27/19 05:20 05/26/19 13:00 CK-MB (CK-2) 2.62 Troponin I < 0.012 Impressions: Chest X-Ray 05/26/19 12:47 IMPRESSION: NO ACUTE RADIOGRAPHIC FINDING IN THE CHEST. Head CT 05/26/19 12:47 IMPRESSION: Focal area of edema in the right frontal lobe this measures 3.5 x 2.3 cm. Differential includes evolving infarct versus mass. Further evaluation with MRI is recommended. EVIDENCE OF ACUTE STROKE: YES. Head MRI 05/26/19 13:43 IMPRESSION: 1. The region of interest in the right frontal lobe looks like chronic old infarct. Superimposed on chronic small vessel disease. Mild atrophy. 2. Acute left azeem cerebellar infarct. EVIDENCE OF ACUTE STROKE: YES. LEFT VERTEBROBASILAR. Head CTA 05/27/19 07:00 IMPRESSION: Old right frontal lobe infarct. Normal [place]. EVIDENCE OF ACUTE STROKE: NO. Neck CTA 05/27/19 07:00 IMPRESSION: NORMAL CTA OF THE EXTRA-CRANIAL CAROTID AND VERTEBRAL ARTERIES. Plan Time Spent: Greater than 30 Minutes Stroke Is this a Stroke Patient?: Yes Stroke Pt being discharged on Anti-thrombolytic therapy?: Yes Stroke Pt being discharged on Anti-coagulation therapy?: No Reason(s) for not prescribing Anti-coagulation therapy:: Not indicated Stroke Pt being discharged on Statins?: Yes Acute Heart Failure - Is this a Heart Failure Patient?: No
[2019-05-27 16:25] VITALS: BP 131/81
== END 2019-05-27 17:10 | disposition home or self-care (01) | DRG 66 ==
LOC: ER 12:21 → EH 16:04 → 3W 17:31
PROVIDERS: ADMIT Internal Medicine; ATTEND Internal Medicine
DX: I63.9 Cerebral infarction, unspecified (principal); E66.9 Obesity, unspecified; J44.9 Chronic obstructive pulmonary disease, unspecified; F17.200 Nicotine dependence, unspecified, uncomplicated; I10 Essential (primary) hypertension; Z79.82 Long term (current) use of aspirin; Z79.899 Other long term (current) drug therapy; Z79.02 Long term (current) use of antithrombotics/antiplatelets; Z86.73 Personal history of transient ischemic attack (TIA), and cerebral infarction without residual deficits; Z71.6 Tobacco abuse counseling; Z68.36 Body mass index [BMI] 36.0-36.9, adult
CPT/HCPCS: 36415; 70450; 70496; 70498; 70553; 71045; 80053; 80061; 82550; 82553; 82962; 83036; 84484; 85025; 85610; 85730; 90686; 93005; 93010; 93306; 96374; 96375; 99285; A9576; J2270; J2405; J3490; J7620